=== PATIENT | female | born 1965 | race African-American/Black ===

== ENCOUNTER 2017-05-26 11:04 | Day surgery (SDC) | payer OTHER ==
[2017-05-26] VITALS (11 sets, daily range): BP systolic 96–136; BP diastolic 56–70; PULSE 51–65
[~2017-05-26] VITALS: Ht 157.6 cm; Wt 110.4 kg
[~2017-05-26 11:04] MED LIST: CARDIZEM CD360 MG PO; CATAPRES-TTS 20.2 M1 TD; CELEBREX 200MG200 MG PO; COLACE 100100 MG/CAP PO; COUMADIN4 MG PO; FERROUS SU325 MG/TAB PO; FOLIC ACID 40400 MCG PO; HCTZ12.5TAB PO; K-DUR20 MEQ PO; LOPRESSOR 550 MG/TAB PO; LOPRESSOR HCT 21 TA1 PO; MACROBID 1100 MG/CAP PO; METAMUCIL0.52 GM PO; MICARDIS HCT 251 TAB PO; MICARDIS80 MG PO; NORCO 325 MG-7.1 TAB PO; SENOKOT8.6 MG PO; ULTRAM 50MG TAB50 MG; VESICARE10 MG PO; VITAMIN C500 MG PO; ZOCOR 20MG20 MG PO
[2017-05-26 11:34] LABS: HEMATOCRIT 42.5 % (37.0-47.0); HEMOGLOBIN 14.7 g/dl (12.5-16.0); MEAN CELL VOLUME 89 fl (80.0-100.0); MEAN CORPUSCULAR HEMOGLOBIN 31 pg (27.0-31.0); MEAN CORPUSCULAR HGB CONC 35 g/dl (33.0-37.0); PLATELET COUNT 270 K/mm3 (130-400); REDCELL DISTRIBUTION WIDTH-CV 12.6 % (11.5-14.5); WHITE BLOOD COUNT 8.1 K/mm3 (4.8-10.8)
[2017-05-26 11:41] LABS: PROTHROMBIN TIME 11.5 SECONDS (9.7-12.8)
[2017-05-26 11:46] LABS: CALCIUM 9.8 mg/dL (8.4-10.2); CREATININE, serum 1.39 mg/dL (0.52-1.25); POTASSIUM 4.2 mmol/L (3.4-5.0)
[2017-05-26] MEDS ORDERED: VITAMIN D32000 I1 PO (12:34)
[2017-05-26] MEDS ORDERED: LASIX 40MG TABL40 MG PO (12:36)
[2017-05-26] MEDS ORDERED: ASPIRIN 81M81 MG/TA2 PO (12:37)
[2017-05-26] MEDS ORDERED: NEXIUM 40MG40 MG PO (12:46)
[2017-05-26] MEDS ORDERED: PROAIR HFA0.09 MG/AC IH (12:46)
== END 2017-05-26 17:28 | disposition home or self-care (01) ==
LOC: COL.CAR 11:04
PROVIDERS: Internal Medicine Interventional Cardiology
DX: R07.9 Chest pain, unspecified (principal); R06.02 Shortness of breath; R94.39 Abnormal result of other cardiovascular function study; I10 Essential (primary) hypertension; E78.5 Hyperlipidemia, unspecified; Z90.49 Acquired absence of other specified parts of digestive tract; Z90.710 Acquired absence of both cervix and uterus; Z96.651 Presence of right artificial knee joint; Z82.49 Family history of ischemic heart disease and other diseases of the circulatory system; Z83.3 Family history of diabetes mellitus
CPT/HCPCS: C1760; J2250; J2405; J3010; Q9967

== ENCOUNTER 2019-07-08 14:04 | Inpatient (IN) | payer OTHER ==
[~2019-07-08] VITALS: Ht 165.1 cm; Wt 106.7 kg
[~2019-07-08 14:04] MED LIST changes: +ASPIRIN 81M81 MG/TA2 PO; +LASIX 40MG TABL40 MG PO; +NEXIUM 40MG40 MG PO; +PROAIR HFA0.09 MG/AC IH; +VITAMIN D32000 I1 PO
[2019-08-20] VITALS (12 sets, daily range): BP systolic 107–147; BP diastolic 54–89; PULSE 64–77; TEMP 97.9–99.1
--- NOTE | 2019-08-20 08:24 | NUR ---
TO RM 2 PER STEADY GAIT. ALERT ORIENTED X3, VERBALIZED UNDERSTANDING AND SIGNED CONSENT. TALKED WITH DR PETERSON AND KEVIN SALES AND BUSINESS DEVELOPMENT MANAGER
[2019-08-20] MEDS ORDERED: LOPRESSOR 225 MG/TAB PO (08:43)
[2019-08-20] MEDS ORDERED: MOBIC15 MG PO (08:50)
[2019-08-20] MEDS ORDERED: GLUCOPHAGE500 MG/TAB PO (08:51)
[2019-08-20] MEDS ORDERED: SYNTHROID0.088 MG/T PO (08:52)
[2019-08-20] MEDS ORDERED: REPATHA SU140 MG/1 M SQ (08:54)
[2019-08-20] MEDS ORDERED: PROTONIX 40MG T40 MG PO (08:55)
[2019-08-20] MEDS ORDERED: FLEXERIL 1010 MG/TAB PO (08:57)
[2019-08-20] MEDS ORDERED: NORCO 325 MG-51 TAB PO (08:58)
[2019-08-20] MEDS ORDERED: PHENERGAN 25 TA25 MG PO (08:58)
[2019-08-20] MEDS ORDERED: VOLTAREN GEL 1%1 TU TP (09:00)
[2019-08-20] MEDS ORDERED: FIORICET 325 MG1 TA1 PO (09:04)
[2019-08-20 10:46] LABS: CALCIUM 9.4 mg/dL (8.4-10.2); CREATININE, serum 1.18 (0.52-1.25); POTASSIUM 3.4 mmol/L (3.4-5.0)
[2019-08-20 13:09] LABS: BASO % 0.3 % (0.0-2.0); EOS % 0.2 % (0-4.0); GRAN # 10.4 (1.4-6.5); GRAN % 82.4 % (42.2-75.2); HEMATOCRIT 39.9 % (37.0-47.0); HEMOGLOBIN 13.7 g/dl (12.5-16.0); LYMPH # 1.8 (1.2-3.4); MEAN CELL VOLUME 87 fl (80.0-100.0); MEAN CORPUSCULAR HEMOGLOBIN 30 pg (27.0-31.0); MEAN CORPUSCULAR HGB CONC 34 g/dl (33.0-37.0); MEAN PLATELET VOLUME 9.9 fl (7.4-10.4); MONO # 0.4 (0.1-0.6); MONO % 2.8 % (1.7-9.3); PLATELET COUNT 238 K/mm3 (130-400); RED BLOOD COUNT 4.59 M/mm3 (4.10-5.30); REDCELL DISTRIBUTION WIDTH-CV 12.4 % (11.5-14.5)
[2019-08-20 13:14] LABS: CREATININE, serum 1.61 (0.52-1.25); POTASSIUM 3.6 mmol/L (3.4-5.0)
--- NOTE | 2019-08-20 13:15 | NUR ---
returned to room from PACU per bed, awake and alert but very sleepy, IV infusing per dial-a-flow set at 125ml/hr, O2 on at 2L/NC, SCDs on bilaterally, recinos cath draining clear light peach urine, abdomen with 6 port sites that are CD&I with garcia set, damion drain intact with mod amount bloody drainage in rservoir, patient moans at interals and also c/o urge to void, explanation given, family at bedside
--- NOTE | 2019-08-20 13:30 | NUR ---
rests in bed with family at bedside, full assessment completed, see interventions for further info, rpositioned for comfort, had scant amount yellow emesis,
--- NOTE | 2019-08-20 13:45 | NUR ---
attempted to given zofran and IV is infultrated, discontinued
--- NOTE | 2019-08-20 14:00 | NUR ---
AIV services in and IV started, while giving zofran patient states she can't take zofran that it makes her "sick", only half of the full dose was given and then discontinued, medicated with tylenol and neurontin for c/o pain
--- NOTE | 2019-08-20 15:00 | NUR ---
appears to be dozing when entered the room all family except for is now gone and she is able to rest, she awakens at intervals while in the room and c/o pain but then goes back to sleep quickly
--- NOTE | 2019-08-20 17:00 | NUR ---
awake and talking with family, asking about having something to eat, will provide pudding and if tolerates will advance diet,
--- NOTE | 2019-08-20 17:35 | NUR ---
c/o pain 08/06 to abdomen, medicated with roxicodone 5mg, had pudding and tolerated well, declines anything more to eat at this time,
--- NOTE | 2019-08-20 19:01 | NUR ---
bedside shift report given to PEGGY Lynn
--- NOTE | 2019-08-20 20:00 | NUR ---
Report received. 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 Assessment complete. VS stable. Abdominal port sites [id number] well approximated. Holcomb cath with clear yellow urine. Denies pain-states roxicodone given at 1730 is conrolling pain. Denies nausea/shortness of breath. Has not passed gas. Plan of care discussed for this shift to include diet, HS meds and pain meds. Verbalizes understanding. at bedside. Call light in reach/bed in low position/wheels locked. Will monitor.
--- NOTE | 2019-08-20 23:00 | NUR ---
Has slept last few hours. Tolerating some H2O but refusing any other diet stating she has been nauseas and doesnt want anything else. IS given with instruction on use. Did complete 6 reps up to 2200. Teaching done on doing q1hx10 while awake. Verbalizes understanding. at bedside. MARYANNE drain with 20 mls of bloody fluid. Holcomb draining clear yellow urine. Denies needs. Will monitor.
[2019-08-21 05:15] VITALS: BP 114/68; PULSE 69; TEMP 99.1
--- NOTE | 2019-08-21 08:00 | NUR ---
PATIENT IS SITTING UP IN BED WITH HER PRESENT AT THE BEDSIDE. PATIENT IS A&OX4. VSS. BOWEL SOUNDS HYPOACTIVE ALL FOUR QUADRANTS. PATIENT TOLERATING CLEAR LIQUIDS WITHOUT ANY COMPLAINTS OF N/V. ABDOMINAL LAP SITES X6 BECCA WITH EDGES WELL APPROXIMATED AND GUZMAN SET IN PLACE. LEFT-SIDED ABDOMINAL MARYANNE DRAIN TO BULB SUCTION WITH SMALL AMOUNTS OF BRIGHT RED DRAINAGE PRESENT IN BULB. POSITIVE PEDAL PULSES EQUAL BILATERALLY. SCD'S TO BLE. INDWELLING KENNEY CATHETER TO DEPENDENT DRAINAGE WITH CLEAR, PALE YELLOW URINE PRESENT IN KENNEY BAG. RIGHT FOREARM TO INT. CALL LIGHT WITHIN REACH. PATIENT DENIES ANY OTHER NEEDS AT THIS TIME.
[2019-08-21 08:04] VITALS: BP 114/62; PULSE 77; TEMP 97.9
[2019-08-21 08:40] LABS: BASO % 0.1 % (0.0-2.0); GRAN # 11.4 (1.4-6.5); GRAN % 85.9 % (42.2-75.2); HEMATOCRIT 40.2 % (37.0-47.0); HEMOGLOBIN 13.8 g/dl (12.5-16.0); LYMPH # 1.1 (1.2-3.4); MEAN CELL VOLUME 87 fl (80.0-100.0); MEAN CORPUSCULAR HEMOGLOBIN 30 pg (27.0-31.0); MEAN CORPUSCULAR HGB CONC 34 g/dl (33.0-37.0); MONO # 0.7 (0.1-0.6); MONO % 5.5 % (1.7-9.3); PLATELET COUNT 224 K/mm3 (130-400); REDCELL DISTRIBUTION WIDTH-CV 12.6 % (11.5-14.5)
[2019-08-21 08:53] LABS: CALCIUM 9.1 mg/dL (8.4-10.2); CREATININE, serum 1.7 (0.52-1.25); POTASSIUM 3.5 mmol/L (3.4-5.0)
--- NOTE | 2019-08-21 09:27 | NUR ---
tie worker attended clinical rounds and met with patient and spouse to discuss discharge planning. Patient states she lives with spouse in [place] and will return there upon discharge. Patient states she is retired and her primary care provider is at [facility]. Patient states she obtains her medications through [facility]. Patient states she does not have advance directives and was agreeable with worker providing her and spouse with copies for completion at a later time. tie worker requested nurse obtain physical therapy orders if physician approved.
--- NOTE | 2019-08-21 10:19 | NUR ---
dental laboratory worker provided written copies of living will and durable power of contracts attorney for health care to patient and spouse. Worker provided verbal education on directives.
[2019-08-21 11:00] VITALS: BP 123/72; PULSE 65; TEMP 97.1
--- NOTE | 2019-08-21 11:58 | NUR ---
Initial visit; Patient and thanked Managing Member for looking in on her, offering her God's blessings and keeping her in Managing Member's prayers.
--- NOTE | 2019-08-21 12:45 | NUR ---
KENNEY CATHETER DC'D PER ORDERS. 10 MLS OF STERILE WATER ASPIRATED FROM BALLOON. TIP INTACT. PATIENT TOLERATED WELL.
[2019-08-21 15:30] VITALS: BP 113/52; PULSE 65; TEMP 98.3
--- NOTE | 2019-08-21 17:20 | NUR ---
PATIENT VOIDING SUFFICIENTLY POST KENNEY REMOVAL.
--- NOTE | 2019-08-21 19:12 | NUR ---
REPORT GIVEN TO PEGGY VIDAL.
--- NOTE | 2019-08-21 19:45 | NUR ---
Report received. 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 Assessment complete. VS stable. C/O pain to abdomen rating 7/10-described as ache/throb/pressure. Roxicodone given per dr order. Denies nausea and shortness of breath. Tolerating diet. 6 port sites-edges well approximated-swiftset. No s/s of infection noted. Denies questions or concerns. Call light in reach. Bed in low position/wheels locked. Will monitor.
[2019-08-21 20:00] VITALS: BP 111/54; PULSE 65; TEMP 98
[2019-08-22 00:50] VITALS: BP 113/67; PULSE 58; TEMP 98
[2019-08-22 04:50] VITALS: BP 114/68; PULSE 62; TEMP 97.7
--- NOTE | 2019-08-22 06:03 | NUR ---
Rested well this shift. Voiding without difficulty. Pain controlled with PO pain medications. Ambulated in hallway without difficulty. VS stable. Tolerating diet. Total of 40mls of fluid to MARYANNE drain for this shift. Denies needs. Will monitor.
[2019-08-22 06:38] LABS: BASO % 0.2 % (0.0-2.0); GRAN # 10.4 (1.4-6.5); GRAN % 80.2 % (42.2-75.2); HEMATOCRIT 37.1 % (37.0-47.0); HEMOGLOBIN 12.4 g/dl (12.5-16.0); LYMPH # 1.4 (1.2-3.4); MEAN CELL VOLUME 88 fl (80.0-100.0); MEAN CORPUSCULAR HEMOGLOBIN 29 pg (27.0-31.0); MEAN CORPUSCULAR HGB CONC 33 g/dl (33.0-37.0); MEAN PLATELET VOLUME 10.1 fl (7.4-10.4); MONO % 7.8 % (1.7-9.3); PLATELET COUNT 202 K/mm3 (130-400); RED BLOOD COUNT 4.23 M/mm3 (4.10-5.30); REDCELL DISTRIBUTION WIDTH-CV 12.6 % (11.5-14.5)
[2019-08-22 06:57] LABS: CALCIUM 8.9 mg/dL (8.4-10.2); CREATININE, serum 1.51 (0.52-1.25); POTASSIUM 3.7 mmol/L (3.4-5.0)
[2019-08-22 07:25] VITALS: BP 123/67; PULSE 64
--- NOTE | 2019-08-22 07:56 | NUR ---
Pt resting in bed upon entering room, eating breakfast. Pleasant mood and cooperative with cares. Rates pain at 3/10 in the abdomen, reports as more discomfort than pain, like gas pain/bubbles. After breakfast pt was walked in the verde with standby assist of 1, no c/o of increasing discomfort. Pt refused the recliner and requested to go back to bed after walking the verde. She was independent returning to bed and a warm blanket was given to help reduce discomfort of gas pain. Call light in reach, no other complaints at this time, will continue to monitor.
--- NOTE | 2019-08-22 08:50 | NUR ---
Patient in bed resting. Alert and oriented x 3. Shift assessment complete. Patient complains of pain 6/10 after ambulating with PT. Will administer medicaitons per orders. Lap sites x 6 with edges well approximated. Basilio drain to bulb compression with mucus present in drain, will continue to monitor. Denies further needs at this time.
--- NOTE | 2019-08-22 09:11 | NUR ---
Pt's blood pressure this AM was 123/67, pulse 64. This student nurse spoke with primary nurse Toya about morning dose of blood pressure medicaitons and whether or not she was comfortable with pt receiving both. After reviewing vitals primary nurse instructed this student nurse to contiue with medication administration. Also at this time pt requested pain medication for a pain rating of 6/10 after PT, PRN order was adminsitered.
--- NOTE | 2019-08-22 10:09 | NUR ---
Follow-up visit; Patient thanked Dog Control Officer for looking in on her and offering God's blessings.
[2019-08-22 13:04] VITALS: BP 95/48; PULSE 63; TEMP 97.3
--- NOTE | 2019-08-22 13:25 | NUR ---
Pt resting in bed at this time, at bedside. No further needs expressed, call light within reach. Pts MARYANNE drain still milky white and light pink. Primary nurse to resume care and will continue to montior.
--- NOTE | 2019-08-22 14:00 | NUR ---
Reported onto PEGGY Pittman. patient was resting quietly with by her side. call light within reach.
--- NOTE | 2019-08-22 15:30 | NUR ---
Patient was busy visiting with and other vistors. no complaints/discomfort, call light within reach.
[2019-08-22] MEDS ORDERED: NORCO 325 MG-51 TAB PO (16:16)
[2019-08-22] MEDS ORDERED: DULCOLAX STOOL100 MG PO (16:17)
[2019-08-22 16:30] VITALS: BP 116/58; PULSE 58; TEMP 98.3
--- NOTE | 2019-08-22 16:30 | NUR ---
Patient was ready to get home. was at her side, no complaints upon discharge. Reported off to PEGGY Pittman
--- NOTE | 2019-08-22 17:40 | NUR ---
Discharge education provided to patient. Educated on signs and symptoms of infection. Patient educated on when to call provider and all medicaions. All questions answered. Patient requested pain medicaitons prior to discharge, given per orders. Denies further needs at this time. Patient out by wheelchair with surgical staff and spouse.
== END 2019-08-22 17:40 | disposition home or self-care (01) | DRG 661 ==
LOC: SURG 07-30 09:00 → INPTSU 08-20 07:06 → SURG 08-20 09:00
PROVIDERS: Physician Assistant; Registered Nurse; ADMIT Urology
PROC: 8E0W4CZ Robotic Assisted Procedure of Trunk Region, Percutaneous Endoscopic Approach (ICD-10-PCS; 2019-08-20)
PROC: 0TB14ZZ Excision of Left Kidney, Percutaneous Endoscopic Approach (ICD-10-PCS; principal; 2019-08-20 09:00)
DX: N28.89 Other specified disorders of kidney and ureter (principal); N17.9 Acute kidney failure, unspecified; E66.01 Morbid (severe) obesity due to excess calories; Z68.39 Body mass index [BMI] 39.0-39.9, adult; E11.9 Type 2 diabetes mellitus without complications; I10 Essential (primary) hypertension; K57.90 Diverticulosis of intestine, part unspecified, without perforation or abscess without bleeding; E78.00 Pure hypercholesterolemia, unspecified; I73.9 Peripheral vascular disease, unspecified; J45.909 Unspecified asthma, uncomplicated; Z88.5 Allergy status to narcotic agent; Z88.2 Allergy status to sulfonamides; E03.9 Hypothyroidism, unspecified; G47.33 Obstructive sleep apnea (adult) (pediatric)
CPT/HCPCS: 99222; 99231-AI; A4314; A9284; J1100; J1940; J2250; J2370; J2405; J2704; J3010; J7120

== ENCOUNTER 2019-08-24 09:34 | Emergency (ER) | payer OTHER ==
[~2019-08-24] VITALS: Ht 157.5 cm; Wt 104.5 kg
[~2019-08-24 09:34] MED LIST changes: +DULCOLAX STOOL100 MG PO; +FIORICET 325 MG1 TA1 PO; +FLEXERIL 1010 MG/TAB PO; +GLUCOPHAGE500 MG/TAB PO; +LOPRESSOR 225 MG/TAB PO; +MOBIC15 MG PO; +NORCO 325 MG-51 TAB PO; +PHENERGAN 25 TA25 MG PO; +PROTONIX 40MG T40 MG PO; +REPATHA SU140 MG/1 M SQ; +SYNTHROID0.088 MG/T PO; +VOLTAREN GEL 1%1 TU TP
[2019-08-24 10:50] LABS: COLLECTION METHOD CLEAN CATCH
[2019-08-24 10:54] LABS: BASO % 0.3 % (0.0-2.0); EOS # 0.3 (0.0-0.7); EOS % 2.5 % (0-4.0); GRAN # 7.8 (1.4-6.5); GRAN % 73.6 % (42.2-75.2); HEMATOCRIT 37.6 % (37.0-47.0); HEMOGLOBIN 12.8 g/dl (12.5-16.0); LYMPH # 1.5 (1.2-3.4); LYMPH % 14.2 % (20.0-51.0); MEAN CELL VOLUME 88 fl (80.0-100.0); MEAN CORPUSCULAR HEMOGLOBIN 30 pg (27.0-31.0); MEAN CORPUSCULAR HGB CONC 34 g/dl (33.0-37.0); MEAN PLATELET VOLUME 9.9 fl (7.4-10.4); MONO % 8.9 % (1.7-9.3); PLATELET COUNT 231 K/mm3 (130-400); RED BLOOD COUNT 4.28 M/mm3 (4.10-5.30); REDCELL DISTRIBUTION WIDTH-CV 12.5 % (11.5-14.5)
[2019-08-24 11:03] LABS: MUCOUS Present /lpf; PH 8 (5-8); URINE APPEARANCE Clear; URINE BACTERIA None Seen /hpf; URINE BILIRUBIN Negative (NEGATIVE); URINE BLOOD 1+ (NEGATIVE); URINE COLOR Straw; URINE GLUCOSE Negative (NEGATIVE); URINE KETONE Negative (NEGATIVE); URINE LEUKOCYTE ESTERASE Negative (NEGATIVE); URINE NITRATE Negative (NEGATIVE); URINE PROTEIN(semi-quant) Negative (NEGATIVE); URINE UROBILINOGEN Negative (NEGATIVE)
[2019-08-24 11:09] LABS: ALBUMIN 3.6 gm/dL (3.5-5.0); BILIRUBIN,TOTAL 0.6 mg/dL (0.0-1.0); CREATININE, serum 1.28 (0.52-1.25); POTASSIUM 3.9 mmol/L (3.4-5.0); TOTAL PROTEIN 6.8 gm/dL (6.4-8.2)
[2019-08-24] MEDS ORDERED: LEVAQUIN 5500 MG/TA1 PO (12:04)
[2019-08-24] MEDS ORDERED: PHENERGAN 25 TA25 MG PO (12:04)
[2019-08-24 13:35] VITALS: BP 130/77; PULSE 72; TEMP 98.5
== END 2019-08-24 13:35 | disposition home or self-care (01) ==
LOC: COL.ER 09:34
PROVIDERS: Emergency Medicine
DX: R10.9 Unspecified abdominal pain (principal); E11.9 Type 2 diabetes mellitus without complications; I10 Essential (primary) hypertension; E78.5 Hyperlipidemia, unspecified; Z79.84 Long term (current) use of oral hypoglycemic drugs; Z90.5 Acquired absence of kidney; Z90.49 Acquired absence of other specified parts of digestive tract; Z95.9 Presence of cardiac and vascular implant and graft, unspecified; Z98.890 Other specified postprocedural states
CPT/HCPCS: J2550; J3010; J7030; Q9967

== ENCOUNTER 2020-02-25 09:19 | Inpatient (IN) | payer OTHER ==
[~2020-02-25] VITALS: Ht 157.5 cm; Wt 100.9 kg
[~2020-02-25 09:19] MED LIST changes: +LEVAQUIN 5500 MG/TA1 PO; +METAMUCIL MUL0.52 GM PO; -METAMUCIL0.52 GM PO
[2020-04-21] VITALS (12 sets, daily range): BP systolic 80–149; BP diastolic 51–79; PULSE 51–69; TEMP 97.9–98.4
[2020-04-21] MEDS ORDERED: ASPIRIN 81M81 MG/TA2 PO (02:19)
[2020-04-21] MEDS ORDERED: MASON NATURAL2000 IU PO (02:20)
[2020-04-21] MEDS ORDERED: ULTRAM 50MG TAB50 MG PO (02:21)
[2020-04-21 05:43] LABS: COLLECTION METHOD CLEAN CATCH
[2020-04-21 05:55] LABS: MUCOUS Present /lpf; PH 5 (5-8); URINE APPEARANCE Cloudy; URINE BACTERIA Rare /hpf; URINE BILIRUBIN Negative (NEGATIVE); URINE BLOOD 1+ (NEGATIVE); URINE COLOR Yellow; URINE GLUCOSE Negative (NEGATIVE); URINE KETONE Trace (NEGATIVE); URINE LEUKOCYTE ESTERASE Negative (NEGATIVE); URINE NITRATE Negative (NEGATIVE); URINE PROTEIN(semi-quant) 1+ (NEGATIVE); URINE RBC >50 /hpf; URINE UROBILINOGEN Negative (NEGATIVE)
--- NOTE | 2020-04-21 09:24 | NUR ---
PT RETURNED TO ROOM 328 PER BED WITH SCHUYLER WIRELESS SALES ASSOCIATE REPORTING AT 0900. DRESSING TO LEFT KNEE CDI WITH OCCLUSIVE DRESSINGS OVER INCISION. CRYO CUFF INPLACE. PEDAL PULSES PALPABLE. PT DROWSEY BUT AROUSES TO VERBAL.
--- NOTE | 2020-04-21 10:51 | NUR ---
PT HAVING PONV PHENERGAN GIVEN ORDERED. EMESIS X3.
--- NOTE | 2020-04-21 20:40 | NUR ---
Pt. sitting up in bed at this time. Pt. is A&OX3, assessment complete. INT to lt. forearm patent. Pt. reports that nausea seems better at this time. Dressing to lt. knee cdi. Pt. reports pain at a 8 on pain scale, gave pain meds per orders. Pt. denies further needs, call light within reach.
[2020-04-22 00:33] VITALS: BP 150/75; PULSE 78; TEMP 98.8
[2020-04-22 04:01] VITALS: BP 155/90; PULSE 88; TEMP 98.6
[2020-04-22] MEDS ORDERED: NORCO 325 MG-7.1 TAB PO (06:48)
[2020-04-22] MEDS ORDERED: ASPI325T6 PO (06:48)
[2020-04-22] MEDS ORDERED: CELEBREX 200MG200 MG PO (06:48)
[2020-04-22] MEDS ORDERED: ULTRAM 50MG TAB50 MG PO (06:48)
[2020-04-22 06:59] LABS: HEMOGLOBIN 11.5 g/dl (12.5-16.0)
[2020-04-22 07:03] LABS: HEMATOCRIT 34.4 % (37.0-47.0)
[2020-04-22 08:16] VITALS: BP 143/69; PULSE 74; TEMP 98.4
--- NOTE | 2020-04-22 09:43 | NUR ---
PATIENT UP TO BR THEN TO RECLINER. KENNEY CATHETER REMOVED PER ORDERS. PT TOLERATED WELL.
--- NOTE | 2020-04-22 10:23 | NUR ---
Machine Bookkeeper met with patient to discuss discharge planning. Patient lives in [place] with her Yvon (ph#[phone]). Patient receives primary care and medications from [facility]. Patient has a cane and walker at home. Patient reports she has been using a cane for the last 3-4 months. Patient reports independence with ADLS and plans to return home upon discharge. Patient would like to set up Advance Directives. SW assisted patient in filling out DPOA-HC form. Patient states she wants to designate her Yvon and her son Yvon Montoya. Patient provided signature and verbalized understanding of what she was signing. KERRY and LYDIA Wyatt provided witness signature. SW provided original and copies to patient, then placed a copy in patient's chart. SW to continue to monitor for discharge needs.
[2020-04-22 11:32] VITALS: BP 116/73; PULSE 63; TEMP 98.7
[2020-04-22 15:59] VITALS: BP 121/72; PULSE 71; TEMP 98.3
[2020-04-22 20:00] VITALS: BP 118/70; PULSE 91; TEMP 97.8
--- NOTE | 2020-04-22 20:17 | NUR ---
Received report from PEGGY Bansal. Pt is currently sitting up in bed. Pt was having some pain and was given pain medication at this time. Pt lungs sounds were clear and heart sounds were normal S1 and S2 sounds. Pt bowel sounds were audible in all quads. Pt left left is elevated on a pillow from her calf to her heel. Pt has no other concerns at this time. Pt did state she is ready for a walk once we give her pain medications time to work. Her call light is within reach and her bed is in lowest position .
--- NOTE | 2020-04-22 22:00 | NUR ---
Pt is currently back in bed. Pt was able to ambulate to the nurse station and back. Pt was given pain medication before we got up to walk. Pt vitals were within normal limits. Her lung sounds were clear and her heart sounds were normal S1 and S2 sounds. Pt was able to ambulate to the restroom and void. She has her call ligh within reach and her bed is in lowest position.
[2020-04-23 00:13] VITALS: BP 119/57; PULSE 73; TEMP 98.4
--- NOTE | 2020-04-23 02:13 | NUR ---
Pt currently sleeping in bed with her call light within reach.
[2020-04-23 04:00] VITALS: BP 103/46; PULSE 128; TEMP 99
--- NOTE | 2020-04-23 05:40 | NUR ---
Pt called out at 0530 requesting something for pain. Pt was given pain medication at this time. Pt has her call light within reach and her bed is in lowest position.
[2020-04-23 06:52] LABS: HEMOGLOBIN 11.5 g/dl (12.5-16.0)
[2020-04-23 06:54] LABS: HEMATOCRIT 35.1 % (37.0-47.0)
--- NOTE | 2020-04-23 07:30 | NUR ---
Reported off to PEGGY Costa. Pt is lying in bed on her telephone. Pt has her call light within reach.
[2020-04-23 07:39] VITALS: BP 132/60; PULSE 78; TEMP 98.7
--- NOTE | 2020-04-23 08:00 | NUR ---
PATIENT IS A&O. VSS. RATES PAIN IN LLE AT 3-4 ON PAIN SCALE AT REST. LTK DRESSING IS CD&I WITH AQUACEL INPLACE. TEDS TO BLE. SCD'S CURRENTLY OFF. POSITIVE PEDAL PULSES TO BLE. PATIENT EAT/DRINK/VOIDING SUFFICENT AMOUNTS. AMBULATES WITH EASY STAND BY ASSIST AND WALKER. PATIENT PLANNING TO DISCHARGE HOME LATER TODAY.
--- NOTE | 2020-04-23 09:00 | NUR ---
PATIENT WORKING WITH THERAPY AND REQUESTING SOMETHING MORE FOR PAIN. GAVE PRN ULTRAM, TWO TABS. PT AT BEDSIDE, SEE NOTES.
[2020-04-23 11:50] VITALS: BP 107/59; PULSE 72; TEMP 98.5
--- NOTE | 2020-04-23 12:22 | NUR ---
First visit from the fitter type bar and segment. No needs right now.
--- NOTE | 2020-04-23 13:25 | NUR ---
PATIENT DONE WITH AFTERNOON THERAPY AND READY TO DISCHARGE HOME. PATIENT'S SON AT BEDSIDE. IV ALREADY DC'D THIS AM. GAVE DISCHARGE INSTRUCTIONS, PRESCRIPTIONS, AIRSTRIPS AND F/U APTS. ANSWERED ALL QUESTIONS/CONCERNS. PATIENT ESCORTED OUT VIA WC WITH PERSONAL BELONGINGS.
== END 2020-04-23 13:25 | disposition home or self-care (01) | DRG 470 ==
LOC: JCC 04-21 05:16
PROVIDERS: Orthopaedic Surgery; Physician Assistant; ADMIT Orthopaedic Surgery
PROC: 0SRD0J9 Replacement of Left Knee Joint with Synthetic Substitute, Cemented, Open Approach (ICD-10-PCS; principal; 2020-04-21 07:30)
DX: M17.12 Unilateral primary osteoarthritis, left knee (principal); Z68.41 Body mass index [BMI] 40.0-44.9, adult; M21.10 Varus deformity, not elsewhere classified, unspecified site; J45.909 Unspecified asthma, uncomplicated; M24.562 Contracture, left knee; K21.9 Gastro-esophageal reflux disease without esophagitis; E11.9 Type 2 diabetes mellitus without complications; E66.01 Morbid (severe) obesity due to excess calories; I10 Essential (primary) hypertension; G47.33 Obstructive sleep apnea (adult) (pediatric); K52.9 Noninfective gastroenteritis and colitis, unspecified; Z79.82 Long term (current) use of aspirin; Z90.710 Acquired absence of both cervix and uterus
CPT/HCPCS: A4314; A9284; C1776; J0690; J1885; J2250; J2405; J2704; J3010; J7030

== ENCOUNTER → 2020-04-16 | Outpatient (CLI) | payer OTHER ==
[~2020-04-16] MED LIST changes: +MASON NATURAL2000 IU PO; +ULTRAM 50MG TAB50 MG PO
== END ==
LOC: ZCOL.LAB 11:13
DX: Z01.812 Encounter for preprocedural laboratory examination (principal); Z86.14 Personal history of Methicillin resistant Staphylococcus aureus infection

== ENCOUNTER 2021-02-18 12:29 | Day surgery (SDC) | payer OTHER ==
[~2021-02-18] VITALS: Ht 157.6 cm; Wt 99.1 kg
[2021-02-18] VITALS (67 sets, daily range): BP systolic 113–133; BP diastolic 71–79; PULSE 50–57; TEMP 98.1; O2SAT 93–100
[~2021-02-18 12:29] MED LIST changes: +ASPI325T6 PO; +K-DUR 10 MEQ T10 MEQ PO; -K-DUR20 MEQ PO
[2021-02-18 13:39] LABS: HEMATOCRIT 41.5 % (37.0-47.0); HEMOGLOBIN 13.8 g/dl (12.5-16.0); MEAN CELL VOLUME 90 fl (80.0-100.0); MEAN CORPUSCULAR HEMOGLOBIN 30 pg (27.0-31.0); MEAN CORPUSCULAR HGB CONC 33 g/dl (33.0-37.0); MEAN PLATELET VOLUME 9.7 fl (7.4-10.4); PLATELET COUNT 279 K/mm3 (130-400); RED BLOOD COUNT 4.63 M/mm3 (4.10-5.30); REDCELL DISTRIBUTION WIDTH-CV 12.8 % (11.5-14.5)
[2021-02-18 13:47] LABS: PROTHROMBIN TIME 11.5 SECONDS (9.7-12.8)
[2021-02-18 13:48] LABS: CALCIUM 9.3 mg/dL (8.4-10.2); CREATININE, serum 1.16 (0.52-1.25); POTASSIUM 4.7 mmol/L (3.4-5.0)
[2021-02-18 13:49] LABS: PARTIAL THROMBOPLASTIN TIME 34.2 SECONDS (26.0-37.0)
[2021-02-18] MEDS ORDERED: ASPIRIN 81M81 MG/TA2 PO (14:00)
[2021-02-18] MEDS ORDERED: LIDODERM 5% PATC1 EA TP (14:03)
[2021-02-18] MEDS ORDERED: LYRICA 150MG C150 MG PO (14:04)
[2021-02-18] MEDS ORDERED: ULTRAM 50MG TAB50 MG PO (14:04)
[2021-02-18] MEDS ORDERED: MOTRIN 200200 MG/TAB PO (14:16)
--- NOTE | 2021-02-18 15:19 | NUR ---
SEE MERGE DOCUMENTATION FOR MEDICATION ADMINISTRATION TIMES AND INTRA/POST PROCEDURE SEDATION ASSESSMENTS.
--- NOTE | 2021-02-18 17:49 | NUR ---
Report to Chino Rueda.
--- NOTE | 2021-02-18 18:50 | NUR ---
Pt care assumed at 1800 from Taisha WOODS. Starting at 1950, TR band was deflated without any problems. Site dressed with bandaid, folded 2x2 and coban, with cms intact. Pt has been ambulatory in her room with steady gait. I reviewed dc/fu instructions with pt who verbalized understanding. IV was dc'd with cath intact, dressing applied. escorted to exit via wheelchair.
== END 2021-02-18 19:00 | disposition home or self-care (01) ==
LOC: COL.CAR 12:29
PROVIDERS: Internal Medicine Interventional Cardiology
DX: I25.119 Atherosclerotic heart disease of native coronary artery with unspecified angina pectoris (principal); I10 Essential (primary) hypertension; R60.0 Localized edema; Z88.5 Allergy status to narcotic agent; Z88.2 Allergy status to sulfonamides; Z79.899 Other long term (current) drug therapy; Z79.82 Long term (current) use of aspirin; Z79.84 Long term (current) use of oral hypoglycemic drugs; Z79.890 Hormone replacement therapy; Z20.822 Contact with and (suspected) exposure to COVID-19
CPT/HCPCS: C1769; J1644; J2250; J3010; Q9967

== ENCOUNTER → 2021-03-03 | Outpatient (CLI) | payer OTHER ==
[~2021-03-03] MED LIST changes: +LIDODERM 5% PATC1 EA TP; +LYRICA 150MG C150 MG PO; +MOTRIN 200200 MG/TAB PO
== END ==
LOC: COL.RAD 07:43
DX: M67.813 Other specified disorders of tendon, right shoulder (principal); Z85.528 Personal history of other malignant neoplasm of kidney

== ENCOUNTER → 2021-03-17 | Outpatient (CLI) | payer OTHER | LOC: COL.RAD 13:34 | DX: M50.323 Other cervical disc degeneration at C6-C7 level (principal); M48.02 Spinal stenosis, cervical region; M25.78 Osteophyte, vertebrae; E23.6 Other disorders of pituitary gland; Z85.528 Personal history of other malignant neoplasm of kidney ==

== ENCOUNTER 2022-03-15 07:07 | Day surgery (SDC) | payer OTHER ==
[~2022-03-15] VITALS: Ht 157.5 cm; Wt 106.0 kg
[2022-03-15 07:44] VITALS: BP 142/90; PULSE 78; TEMP 96.2
[2022-03-15 08:50] VITALS: BP 131/84; PULSE 81; TEMP 97.7
[2022-03-15 09:05] VITALS: BP 139/100; PULSE 72
[2022-03-15 09:20] VITALS: BP 157/93; PULSE 84
[2022-03-15 09:35] VITALS: BP 164/98; PULSE 84
--- NOTE | 2022-03-15 12:31 | NUR ---
0850: Patient arrived back into bay 1 from Endo procedure room. at bedside. Patient alert and awake. Requesting orange juice and vanilla pudding. Vital signs stable. Call light left within reach. 0905: Patient tolerating food and drink well. 0935: Patient vitally stable. Tolerated food and drink denies needs at this time. 0945: Dr. Lemus in to see patient and 0950: Went through discharge instructions with patient and . Questions answered. Patient's IV removed without complications. Coband applied. Patient got dressed with assistance of . Escorted to patient entrance via wheelchair. Patient got into personal vehicle unassisted. Patient left in the care of her .
== END 2022-03-15 10:10 | disposition home or self-care (01) ==
LOC: SDCO 07:07
DX: C16.0 Malignant neoplasm of cardia (principal); K21.00 Gastro-esophageal reflux disease with esophagitis, without bleeding; K29.30 Chronic superficial gastritis without bleeding; K31.89 Other diseases of stomach and duodenum
CPT/HCPCS: J2704; J7030